=== PATIENT | female | born 1985 | race African-American/Black ===

== ENCOUNTER 2018-03-28 13:46 | Emergency (ER) | payer OTHER ==
[~2018-03-28] VITALS: Ht 165.1 cm; Wt 97.1 kg
[2018-03-28] MEDS ORDERED: ROBAXIN-750750 MG PO (14:28)
[2018-03-28 14:41] VITALS: BP 116/70
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
== END 2018-03-28 14:41 | disposition home or self-care (01) ==
LOC: EMR 14:25
DX: M54.2 Cervicalgia (principal); M54.6 Pain in thoracic spine; V43.62XD Car passenger injured in collision with other type car in traffic accident, subsequent encounter
CPT/HCPCS: 99283

== ENCOUNTER 2018-07-25 05:43 | Inpatient (IN) | payer OTHER ==
[~2018-07-25] VITALS: Ht 165.1 cm; Wt 93.0 kg
[2018-07-25] VITALS (13 sets, daily range): BP systolic 105–132; BP diastolic 69–93
[~2018-07-25 05:43] MED LIST: CYCLOBENZAPRINE10 MG ORAL; IBUPROFEN600 MG ORAL; IMITREX50 MG ORAL; METFORMIN HCL500 M1 ORAL; ROBAXIN-750750 MG PO; SPIRONOLACTONE100 MG ORAL
[2018-07-25] MEDS ORDERED: ceFAZolin sod 2 GM in D5W 110 ML IVPB ONE (07:00)
[2018-07-25] MEDS ORDERED: fentaNYL 100 mcg/2 mL IV ONE (07:01)
[2018-07-25] MEDS ORDERED: Midazolam 2mg/2ml Inj ONE (07:01)
[2018-07-25] MEDS ORDERED: Vancomycin 1gm inj IVPB ONE (07:06)
[2018-07-25] MEDS ORDERED: Gelfoam Size TOPIC ONE (07:06)
[2018-07-25] MEDS ORDERED: Thrombin 5000 units TOPIC ONE ×3 (07:06→07:08)
[2018-07-25] MEDS ORDERED: Lidocaine 1% MPF 10mg/ml 5ml ONE (07:06)
[2018-07-25] MEDS ORDERED: Bacitracin 50000 Units Vial ONE (07:07)
[2018-07-25] MEDS ORDERED: Bupivacaine w/Epi 0.5% 30ml Vial INJ ONE (07:07)
[2018-07-25] MEDS ORDERED: Zemuron 50mg/5ml Inj IV ONE (07:15)
[2018-07-25] MEDS ORDERED: Succinylcholine 20mg/ml 10ml vial ONE (07:15)
--- NOTE | 2018-07-25 07:31 | Pre-Procedure Note/Attestation ---
Pre-Procedure Note/Attestation Indications for Procedure Pre-Operative Diagnosis: right L5S1 microdecompression and microdiscectomy Attestation I attest that I discussed the nature of the procedure; its benefits; risks and complications; and alternatives (and the risks and benefits of such alternatives ), prior to the procedure, with the patient (or the patient's legal special service representative). I attest that, if there was a reasonable possibility of needing a blood transfusion, the patient (or the patient's legal special service representative) was given the [facility] standardized written summary, pursuant to the [place] Blood Safety Act ([place] Health and Safety Code # 1645, as amended). I attest that I re-evaluated the patient just prior to the surgery and that there has been no change in the patient's H&P, except as documented below: Joel Garcia MD Jul 25, 2018 07:31
[2018-07-25] MEDS ORDERED: NS Irrig 1000ml ONE (08:00)
[2018-07-25] MEDS ORDERED: Sterile Water Irrig 1000ml IRRIG ONE (08:00)
[2018-07-25] MEDS ORDERED: Propofol 1,000mg/ 100ml btl IV ONE (08:00)
[2018-07-25] MEDS ORDERED: LR 1000ml ONE (08:00)
[2018-07-25] MEDS ORDERED: Morphine Sulfate 10mg/ml Inj ONE (08:33)
[2018-07-25] MEDS ORDERED: Ketorolac 30mg Inj ONE (08:34)
[2018-07-25] MEDS ORDERED: Glycopyrrolate 0.2mg/ml 1ml Vial ONE (08:34)
[2018-07-25] MEDS ORDERED: Neostigmine 1mg/ml 10ml Inj ONE (08:34)
[2018-07-25] MEDS ORDERED: Sodium Chloride 10ml vial INJ ONE (08:34)
[2018-07-25] MEDS ORDERED: LR 1000ml 1,000 ML IVLG SCH (08:54)
--- NOTE | 2018-07-25 08:54 | Anethesia Preoperative Eval ---
Anesthesia Pre-op PMH/ROS General Date of Evaluation: Jul 25, 2018 Time of Evaluation: 07:25 Anesthesiologist: Conner ASA Score: ASA 2 Mallampati Score Class I : Soft palate, uvula, fauces, pillars visible Class II: Soft palate, uvula, fauces visible Class III: Soft palate, base of uvula visible Class IV: Only hard plate visible Mallampati Classification: Class II Surgeon: Radha Diagnosis: Lumbar radiculopathy Surgical Procedure: L5-S1 laminotomy Anesthesia History: none Family History: no anesthesia problems Allergies: Coded Allergies: Dairy (Verified Allergy, Severe, 07/24/18) upset stomach,constipaton Patient NPO?: Yes NPO Date: Jul 24, 2018 NPO Time: 1999 Past Medical History Cardiovascular: Denies: HTN, CAD, VT, valve dz, arrhythmia, other Pulmonary: Denies: asthma, COPD, MICAH, other Gastrointestinal/Genitourinary: Reports: GERD - mild Neurologic/Psychiatric: Reports: depression/anxiety; Denies: dementia, CVA, TIA, other Endocrine: Reports: DM - borderline; Denies: hypothyroidism, steroids, other HEENT: Denies: cataract (L), cataract (R), glaucoma, WIYOT (L), WIYOT (R), other Hematology/Immune: Denies: anemia, DVT, bleeding disorder, other Musculoskeletal/Integumentary: Denies: OA, RA, DJD, DDD, edema, other Other: obesity - morbid obesity PMH Narrative: as above Anesthesia Pre-op Phys. Exam Physician Exam Last Vital Signs Date Time Temp Pulse Resp B/P (MAP) Pulse Ox O2 Delivery O2 Flow Rate FiO2 07/25/18 06:38 98.7 80 18 125/81 (96) 100 98.7 07/25/18 06:31 Room Air Constitutional: NAD Neurologic: CN 2-12 intact Cardiovascular: RRR, no M/R/G Respiratory: CTA Gastrointestinal: other - obesity Airway Exam Mallampati Score: Class II MO: limited Neck: flexible ROM: full Teeth: intact Dentures: no upper, no lower Anesthesia Pre-op A/P Labs see cart Urine Test Test 07/25/18 06:05 Urine HCG, Qualitative Negative (NEGATIVE) Studies Pre-op Studies: EKG - NSR, CXR - WNL Risk Assessment & Plan Assessment: ASA 2 Plan: GA with ETT neuromonitoring Status Change Before Surgery: No Pre-Antibiotics Drug: [id number]. Given Within 1 Hr of Incision: Yes Time Given: 08:16 Jesse Prieto MD Jul 25, 2018 08:54
[2018-07-25] MEDS ORDERED: DiphenhydrAMINE 50mg/ml Inj IVP PRN (09:00)
[2018-07-25] MEDS ORDERED: fentaNYL 100 mcg/2 mL IV PRN (09:00)
[2018-07-25] MEDS ORDERED: Midazolam 2mg/2ml Inj IVP PRN (09:00)
[2018-07-25] MEDS ORDERED: Ketorolac 30mg Inj IV PRN (09:00)
[2018-07-25] MEDS ORDERED: Acetaminophen (Non formulary) 100 ML IV ONE (09:00)
[2018-07-25] MEDS ORDERED: Meperidine 50mg/ml Inj(FOR RIGORS ONLY) IV PRN (09:00)
[2018-07-25] MEDS ORDERED: Metoclopramide 10mg/2ml Inj IVP PRN (09:00)
--- NOTE | 2018-07-25 09:45 | Brief Operative Note ---
Immediate Post Operative Note Operative Note Pre-op Diagnosis: right L5S1 microdecompression and microdiscectomy Procedure: Right L5S1 microdiscectomy Post-op Diagnosis: same as pre-op Findings: consistent w/pre-op dx studies Surgeon: Radha Improvement Manager: Paulie Anesthesiologist: Conner Anesthesia: general Specimen: yes Complications: none Condition: stable Fluids: 800cc crystalloid Estimated Blood Loss: minimal - 500cc Drains: none Implant(s) used?: No Joel Garcia MD Jul 25, 2018 09:45
--- NOTE | 2018-07-25 10:01 | Immediate Post-Op Evaluation ---
Immediate Post-Op Evalulation Immediate Post-Op Evalulation Procedure: L5-S1 laminotomy with decompression Date of Evaluation: Jul 25, 2018 Time of Evaluation: 10:00 IV Fluids: 800 Blood Products: none Estimated Blood Loss: 50 Urinary Output: none Blood Pressure Systolic: 118 Blood Pressure Diastolic: 72 Pulse Rate: 86 Respiratory Rate: 20 O2 Sat by Pulse Oximetry: 99 Temperature (Fahrenheit): 98.2 Pain Score (1-10): 1 Nausea: No Vomiting: No Complications none Patient Status: reacts, patent, extubated, none Hydration Status: adequate Jesse Prieto MD Jul 25, 2018 10:01
[2018-07-25] MEDS ORDERED: D5 1/2NS 1,000 ML IV SCH (13:00)
[2018-07-25] MEDS ORDERED: Norco 5mg/325mg tab ORAL PRN (13:00)
[2018-07-25] MEDS ORDERED: Naloxone 0.4mg/ml Inj IVP PRN (13:00)
[2018-07-25] MEDS ORDERED: HYDROmorphone 1mg/ml Carpuject IVP PRN (13:00)
[2018-07-25] MEDS ORDERED: HYDROmorphone 1mg/ml Carpuject SUBQ PRN (13:00)
[2018-07-25] MEDS: HYDROcodone/Acetamin 7.5/325 tab ORAL PRN ×2 (13:26→16:39)
[2018-07-25] MEDS ORDERED: SUMAtriptan 50mg tab ORAL PRN (15:00)
[2018-07-25] MEDS ORDERED: Cyclobenzaprine 10mg Tab ORAL PRN (15:00)
--- NOTE | 2018-07-25 15:03 | Diagnostic Imaging Report ---
Indication: Back pain. Intraoperative imaging Comparison: None Findings: Fluoroscopic time 4.7 seconds. Single crosstable view showing instrumentation posterior to the L5-S1 disc. IMPRESSION: Intraoperative imaging
[2018-07-25] MEDS: ceFAZolin sod 1 GM in D5W 55 ML IV SCH ×2 (16:31→23:19)
[2018-07-25] MEDS: Docusate 100mg cap ORAL SCH (17:16)
[2018-07-25] MEDS: Methocarbamol 750mg tab ORAL SCH (17:17)
--- NOTE | 2018-07-25 20:51 | Cardiology Progress Note ---
Assessment/Plan Assessment/Plan [id number] Objective Last 24 Hour Vital Signs Date Time Temp Pulse Resp B/P (MAP) Pulse Ox O2 Delivery O2 Flow Rate FiO2 07/25/18 20:00 97.8 88 17 114/73 (87) 98 97.8 07/25/18 16:00 97.9 83 20 105/69 (81) 100 97.9 07/25/18 12:00 97.6 91 20 123/78 (93) 100 97.6 07/25/18 11:30 97.8 80 20 125/93 (104) 100 97.8 07/25/18 11:00 Nasal Cannula 3.0 07/25/18 11:00 97.6 20 123/75 (91) 100 97.6 07/25/18 10:58 98.4 07/25/18 10:40 98.4 87 20 129/73 99 Nasal Cannula 3 98.4 07/25/18 10:28 90 21 131/79 99 Nasal Cannula 3 07/25/18 10:28 98.6 07/25/18 10:20 89 21 132/75 100 Nasal Cannula 3 07/25/18 10:10 96 22 128/81 100 Simple Mask 6 07/25/18 10:01 208.8 86 20 99 07/25/18 10:00 100 22 132/77 100 Simple Mask 6 07/25/18 09:55 103 23 118/74 100 Simple Mask 6 07/25/18 09:50 98.2 104 22 128/83 98 Simple Mask 6 98.2 07/25/18 06:38 98.7 80 18 125/81 (96) 100 98.7 07/25/18 06:31 Room Air Intake and Output 07/24/18 07/25/18 19:00 07:00 # Voids 1 Laboratory Tests Test 07/25/18 06:05 Urine HCG, Qualitative Negative (NEGATIVE) Prince Jean MD Jul 25, 2018 20:51
--- NOTE | 2018-07-25 21:45 | Operative Note - Dictated ---
DATE OF OPERATION: 07/25/2018 SURGEON: Joel Garcia M.D. DOOR MAKER: Antonino Apodaca M.D. ANESTHESIOLOGIST: Jesse Prieto M.D. PREOPERATIVE DIAGNOSES: L5-S1 disk protrusion with stenosis with annular tear/fissure, spondylosis, and right lower extremity radiculopathy. POSTOPERATIVE DIAGNOSES: L5-S1 disk protrusion with stenosis with annular tear/fissure, spondylosis, and right lower extremity radiculopathy. PROCEDURE PERFORMED: 1. Right-sided L5-S1 interlumbar laminotomies, medial facetectomy, foraminotomy, and microdiskectomy. 2. Intraoperative use of microscope. 3. Intraoperative use of fluoroscopy. SURGEON: Joel Garcia M.D. DOOR MAKER: Antonino Apodaca M.D. ANESTHESIA: General endotracheal anesthesia. ANESTHESIOLOGIST: Jesse Prieto M.D. INTRAOPERATIVE FINDINGS: Large disk herniation, central and right paracentral at L5-S1 with compression of the traversing right S1 nerve root with foraminal stenosis for the exiting L5 nerve root. ESTIMATED BLOOD LOSS: Less than 50 mL. FLUIDS: 800 mL of crystalloid. INDICATIONS: This is a pleasant female who failed nonoperative treatment and option for above treatment was given. Risks, alternatives, and benefits were discussed with the patient at length. The patient wished to proceed. Risks include but are not limited to anesthesia complications including , medical complications including liver, kidney, cardiopulmonary deficits, bleeding, infection, dural tear, CSF leak, nerve root injury, pars fracture, instability, reherniation, continued symptoms as well as possible future surgery. The patient understood and wished to proceed. Written and verbal consent was given. DESCRIPTION OF PROCEDURE: The patient was brought into the operating room supine on a stretcher. Subsequently, appropriate IV lines were placed by the anesthesiologist and 2 g of Ancef was administered. A surgical time-out was called. Anesthesia was induced. The patient was successfully intubated. Sequential compression devices were placed onto the bilateral lower extremities. Neuro-monitoring leads including leads for SSEP, EMG, and dermatomal SSEPs were done. The patient was gently turned over onto the Chandrakant frame table. All bony prominences were well padded. The abdomen was assured to lay freely. Preoperative fluoroscopy was done and the L5-S1 level was identified preoperatively. An indelible marker was used to luz the midline over the L5-S1 interspace. At this point, the back was prepped and draped in usual sterile fashion with alcohol and ChloraPrep. Myself and my fleet assistant were prepped and gowned appropriately and at this point, attention was diverted to doing the incision. The intraoperatively sterilely draped microscope was brought into the field and was used from the skin incision through to the skin closure. At this point, a vertical incision was carried out over the L5-S1 interspace and dissection was carried down to the level of the dorsal lumbar fascia. Retractors were set into place. Hemostasis was achieved with Gelfoam and thrombin as well as bipolar cautery. At this point, a right-sided approach to the laminas at L5 and S1 was done with monopolar cautery. The lateral joint capsule was well preserved and a subperiosteal dissection of the lamina of L5 and the lamina of S1 on the right side was accomplished and a Quality Assurance Monitor Final retractors were set into place. At this point, a radiopaque marker was placed at the level of the lower pedicle and a lateral fluoroscopy was done to confirm the S1 pedicle on the right side and thus, the L5-S1 interspace was positively identified. At this point, attention was diverted to doing the interlumbar laminotomies and medial facetectomy, which was done with the aid of a high-speed drill, #2 through #5 Kerrison punches. At this point, the ligamentum flavum was gently peeled off of the common dural sac and the ligamentum flavum was removed. A laminotomy was done at S1 as well as L5. The pars interarticularis was well preserved and safe. Once the ligamentum flavum was removed, attention was diverted to the foramina and exiting L5 nerve root on the right side with #2 Kerrison punches. Bone spurs from the superior facet of S1 were removed, which were impinging on the traversing right L5 nerve root. At this point, a [place] retractor was used to gently retract the neural elements and the intraoperatively draped microscope was used to aid in microdissection of the neural elements. Once this was done, a large disk herniation was found centrally and right paracentrally at L5-S1, causing significant impingement on the traversing S1 nerve root. Hemostasis was achieved with Gelfoam, thrombin, bipolar cautery as well as FloSeal. Now, a slit incision was carried out in the posterior annulus and with the aid of an Darell curette, dental probe, Sedgwick probe, pituitary rongeurs, Peapod, forward-angled and backward-angled pituitary rongeurs, a diskectomy was accomplished. Large pieces of disk were removed until the floor of the canal was found to be flat. Once this was accomplished, the disk space was copiously irrigated with Triple Antibiotic solution. All sponge, needle, and instrument counts were correct at this point. Further examination of the neural elements revealed complete decompression of the central canal and the lateral recess as well as the foramina on the right side. Valsalva at 40 mmHg was done. There was no CSF leak and now attention was diverted to closure. The wound was copiously irrigated with Triple Antibiotic solution. One gram of vancomycin powder was placed suprafascially as well as subfascially. Hemostasis was achieved. There was no bleeding and therefore, decision was made not to use a drain. Attention was now diverted to closure. The dorsal lumbar fascia was closed with #1 Vicryl sutures in a watertight interrupted fashion. The subdural and subcuticular layers were closed with 2-0 Vicryl sutures. The skin was closed with Dermabond. Telfa and sterile dressing was placed. There were no complications during the case. Final EBL was less than 50 mL. Fluids 800 mL. The patient now was turned supine, was extubated in stable condition, was found to be neurovascularly intact, was taken to the recovery room, and found to be neurovascularly intact in the recovery room. The patient was admitted to the hospital for monitoring and I also gave her a prescription for pain, muscle spasms, and inflammation and instructions to follow up in the office in 7-10 days. Joel Garcia M.D. DR: Melyssa JOB#: [id number] CC:
[2018-07-26] VITALS: BP 119/80
[2018-07-26] MEDS: HYDROcodone/Acetamin 7.5/325 tab ORAL PRN ×2 (01:55→06:48)
--- NOTE | 2018-07-26 02:45 | Consultation ---
DATE OF CONSULTATION: 07/25/2018 CARDIOLOGY CONSULTATION CONSULTING PHYSICIAN: Prince Jean M.D. REFERRING PHYSICIAN: Joel Garcia M.D. REASON FOR REFERRAL: Postoperative medical care. HISTORY OF PRESENT ILLNESS: This is a young female, who has had spine surgery scheduled today. The patient was evaluated preoperatively by , was felt to be an acceptable risk and underwent the procedure today. Postoperatively, she is being seen by me. She has some sore throat. Denies any chest pain or shortness of breath. No nausea or vomiting. PAST MEDICAL HISTORY: Positive for diabetes and prediabetes. No history of heart attack. No cancer, stroke, hepatitis, tuberculosis. No asthma, emphysema. No ulcers. No kidney problems, liver problems. She has enlarged thyroid. She has PCOS. No anemia, no arthritis. No human immunodeficiency virus, no AIDS. No blood clots. PAST SURGICAL HISTORY: The only surgery she has had is dental extractions. ALLERGIES: She is not allergic to any medications. SOCIAL HISTORY: Denies any smoking, drinking alcoholic beverages. MEDICATIONS: At home include ibuprofen, metformin, Imitrex, and Blisovi Fe. FAMILY HISTORY: Father alive, 59 years. Mother alive, 59. Diabetes and high blood pressure in both family. Prostate cancer on dad's side and cervical cancer on mom's side. PHYSICAL EXAMINATION: GENERAL: Shows to be overweight young female, in no respiratory distress. NECK: Supple. No jugular venous distention. LUNGS: Clear to auscultation and percussion. CARDIAC: Regular rate and rhythm. No heaves, thrills, or gallops noted. ABDOMEN: Soft, nontender. Positive bowel sounds. EXTREMITIES: There is no clubbing, cyanosis, nor is there any edema. NEUROLOGICAL: She is awake, alert, responsive, and she is moving all four extremities. LABORATORY AND DIAGNOSTIC DATA: No postoperative laboratory values. She has beta HCG that was negative today. Preop laboratories from were reviewed. EKG from preop was also reviewed, appears to be sinus rhythm. Preoperative laboratories show potassium 3.9, creatinine of 1.04. Liver functions were normal. White count 6.1, hemoglobin 12.1, and platelet count 194,000. INR 1, PTT of 25. ASSESSMENT AND PLAN: 1. Status post L5-S1 decompression and microdiskectomy. 2. Pre-diabetes. 3. Polycystic ovarian syndrome. 4. Enlarged thyroid. Dr. Garcia, this patient was seen in cardiac consultation. The patient was doing relatively well postoperatively. Vital signs appeared to be stable. She is afebrile. Blood pressure 105/69 with a heart rate of 63. Pain appears to be adequately controlled and she has the ability to stand up and walk already, and she will be followed with her blood sugars. In the meantime because of her prediabetic status, she will have metformin resumed when she starts on oral feeds and hopefully she will be able to go home relatively soon. She seems to be doing quite well. Prince Jean M.D. DR: KURT JOB#: [id number] CC:
[2018-07-26 04:00] VITALS: BP 120/80
[2018-07-26 07:08] LABS: ANION GAP 8 mmol/L (5-15); BLOOD UREA NITROGEN 6 mg/dL (7-18); CALCIUM 8.5 MG/DL (8.5-10.1); CARBON DIOXIDE 27 MMOL/L (21-32); CHLORIDE 105 MMOL/L (98-107); POTASSIUM 4.1 MMOL/L (3.5-5.1); SODIUM 140 MMOL/L (136-145)
[2018-07-26 08:00] VITALS: BP 142/82
[2018-07-26] MEDS: ceFAZolin sod 1 GM in D5W 55 ML IV SCH (08:08)
[2018-07-26] MEDS: Methocarbamol 750mg tab ORAL SCH ×2 (08:09→12:28)
[2018-07-26] MEDS: Docusate 100mg cap ORAL SCH (08:10)
[2018-07-26] MEDS ORDERED: Spironolactone 50mg tab ORAL SCH (09:00)
[2018-07-26] MEDS ORDERED: metFORMIN 500mg tab ORAL SCH (09:00)
--- NOTE | 2018-07-26 09:31 | 48 Hour Post Anesthesia Eval ---
Post Anesthesia Evaluation Procedure: L5-S1 laminotomy with decompression Date of Evaluation: Jul 26, 2018 Time of Evaluation: 06:48 Blood Pressure Systolic: 142 0: 82 Pulse Rate: 93 Respiratory Rate: 17 Temperature (Fahrenheit): 98.9 O2 Sat by Pulse Oximetry: 95 Airway: patent Nausea: No Vomiting: No Pain Intensity: 3 Cardiopulmonary Status: Stable Follow-up Care/Observations: 0 Post-Anesthesia Complications: 0 Follow-up care needed: N/A Ghulam Da Silva MD Jul 26, 2018 09:31
[2018-07-26 12:16] VITALS: BP 126/73
[2018-07-26 16:00] VITALS: BP 134/74
[2018-07-26] MEDS ORDERED: 1/2 NS 1000ml IV ONE (16:59)
--- NOTE | 2018-07-27 11:40 | Discharge Summary ---
Discharge Summary Hospital Course Date of Admission Jul 25, 2018 at 05:58 Date of Discharge Jul 26, 2018 at 17:00 Admitting Diagnosis lumbar radiculopathy Reason for Hospitalization: elective surgery DAVION Rodney is a 32 year old female who was admitted on Jul 25, 2018 at 05:58 for Lumbar Radiculopathy. Patient was admitted for elective surgery. Consultations dr Jean -IM/cardio Procedures s/p 07/25/[address] Garcia 1. Right-sided L5-S1 interlumbar laminotomies, medial facetectomy, foraminotomy, and microdiskectomy. 2. Intraoperative use of microscope. 3. Intraoperative use of fluoroscopy. Hospital Course status post surgery course of recovery uneventful initially IV fluids s/p perioperative antibiotics neurovascular status closely monitored, stable incision clean dry and intact pain management addressed hemodynamically stable ambulated with PT /OT fall precautions maintained; safe for ambulation tolerated diet , IV fluids discontinued GI prophylaxis provided antiemetics were on board as needed voided freely bowel regimen instituted patient was stable for discharge discharge instructions provided follow up with surgeon as outpatient as advised FINAL DIAGNOSES L5-S1 disk protrusion with stenosis with annular tear/fissure, spondylosis, and right lower extremity radiculopathy s/p L5-S1 laminotomy with decompression Discharge Condition Upon Discharge: stable Discharge Disposition Patient was discharged to Home (01) Discharge Instructions Discharge Instructions Special Instructions I have been assigned to complete a D/C Summary on this account. I was not involved in the patient management Kari Yeung NP Jul 27, 2018 11:40
== END 2018-07-26 17:00 | disposition home or self-care (01) | DRG 520 ==
LOC: SDSOVERFLO 05:58 → 3E 11:37
PROC: 01NB0ZZ Release Lumbar Nerve, Open Approach (ICD-10-PCS; principal; 2018-07-25 07:30)
PROC: 0SB40ZZ Excision of Lumbosacral Disc, Open Approach (ICD-10-PCS; principal; 2018-07-25 07:30)
DX: M51.16 Intervertebral disc disorders with radiculopathy, lumbar region (principal); M51.17 Intervertebral disc disorders with radiculopathy, lumbosacral region; M48.061 Spinal stenosis, lumbar region without neurogenic claudication; M47.27 Other spondylosis with radiculopathy, lumbosacral region; Z79.84 Long term (current) use of oral hypoglycemic drugs; E28.2 Polycystic ovarian syndrome; E04.9 Nontoxic goiter, unspecified; R73.03 Prediabetes
CPT/HCPCS: 36415; 72020; 76001; 80048; 81025; 82962; 87081; 94003; 94150; J2250; J2405; J2710